=== PATIENT | female | born 1930 | race Caucasian/White ===

== ENCOUNTER → 2018-01-25 | Outpatient (CLI) | payer OTHER ==
[~2018-01-25] MED LIST: ALPHA LIPOIC A100 MG PO; B-50 COMPLEX1 EAC1 PO; CARVEDILOL12.5 MG PO; ELIQUIS5 MG PO; FISH OIL 1,001000 M2 PO; HAWTHORN BERRY500 MG PO; KLOR-CON 1010 MEQ PO; LASIX 40 MG TAB40 M2 PO; LO-DOSE ASPIRIN81 M1 PO; METOPROLOL SUCC25 M1 PO; PANTOTHENIC AC500 MG PO; TUMS PO; ZYNCOL30 M1 PO; [UNRECOGNIZED DRUG - OTHER] PO; [UNRECOGNIZED DRUG - OTHER] PO
== END ==
LOC: M.ULTRA 12:06
DX: I70.203 Unspecified atherosclerosis of native arteries of extremities, bilateral legs (principal)